=== PATIENT | female | born 1995 | race Caucasian/White ===

== ENCOUNTER 2019-06-08 15:22 | Emergency (ER) | payer BC, OTHER ==
[~2019-06-08] VITALS: Ht 160 cm; Wt 72.8 kg
[~2019-06-08 15:22] MED LIST: DIAZ5TAB PO; DICY20TA33 PO; NAPR-1154 PO
[2019-06-08 15:38] VITALS: BP 107/73
--- NOTE | 2019-06-08 15:57 | NUR ---
PT STATES, STOPPED EFFEXOR AROUND END OF APRIL BEGINNING OF MAY. AND FEELING LIKE HAVING REDRAWAL SYMPTOMS: FREITAS, BRAIN JOLTS, NAUSEA, VOMITING, DIARRHEA, ANXIETY
[2019-06-08] MEDS ORDERED: PROC-8 PO (16:07)
== END 2019-06-08 16:22 | disposition home or self-care (01) ==
LOC: ER 15:22
DX: F32.9 Major depressive disorder, single episode, unspecified (principal); F41.0 Panic disorder [episodic paroxysmal anxiety]; R11.10 Vomiting, unspecified; R19.7 Diarrhea, unspecified; F19.239 Other psychoactive substance dependence with withdrawal, unspecified; F10.99 Alcohol use, unspecified with unspecified alcohol-induced disorder; Z79.899 Other long term (current) drug therapy; Y90.9 Presence of alcohol in blood, level not specified
CPT/HCPCS: 99284

== ENCOUNTER 2025-10-20 17:00 | Emergency (ER) | payer MEDICAID, OTHER ==
[~2025-10-20] VITALS: Ht 160 cm; Wt 97.7 kg
[~2025-10-20 17:00] MED LIST changes: +PROC-8 PO
[2025-10-20 17:31] VITALS: BP 141/94; PULSE 84; RESP 18; O2SAT 98
[2025-10-20] MEDS ORDERED: GABA300C PO (18:27)
--- NOTE | 2025-10-20 18:28 | Physician Documentation ---
HPI ~ General Chief Complaint: Medication Refill Stated Complaint: MED REQUEST Time Seen by MD: 18:23 Primary Medical Doctor: IS[facility] History of Present Illness HPI Comments Patient is a very pleasant 30-year-old female that presents to the emergency department for evaluation for medication refill. Patient reports she is from out of town and is in need of having her gabapentin refilled. Patient reports she takes 300 mg 5 times a day. Patient denies any other symptoms at this time. Medication Reconciliation Allergies: Coded Allergies: No Known Allergies (Unverified , 10/20/25) Scheduled Gabapentin (Neurontin), 1 CAP PO Q8H Naproxen (Naprosyn), 1 TABLET PO BID Prochlorperazine Maleate (Compazine), 1 TAB PO Q8HPRN Scheduled PRN Diazepam (Valium), 1 TABLET PO TID PRN for spasm Dicyclomine HCl (Bentyl), 1 TABLET PO TID PRN for abdominal cramps Past Medical History Past Medical History: Depression Past Surgical History: no surgical history Alcohol Use: Occasionally Lives In: Home Review of Systems ROS As stated above in the HPI, otherwise all systems are reviewed and negative. Physical Exam Physical Exam Vital Signs: Temperature: 97.8, Source: Oral, Heart Rate: 84, Respiratory Rate: 18, BP: 141/94, Pulse Oximetry: 98, Weight: 97.730 Oxygen Flow Rate: 0 Physical Exam VITALS: Reviewed and as above. GENERAL: Alert, no apparent distress. SKIN: Warm and dry, no rash NEURO: Oriented x4, No motor or sensory deficit PSYCH: Normal mood and affect, no agitation Progress Results/Orders Results/Orders Vital Signs 10/20/25 10/20/25 17:31 19:02 Temp 97.8 97.8 Pulse 84 Resp 18 B/P (MAP) 141/94 Pulse Ox 98 O2 Flow Rate 0 Medical Decision Making Additional information obtaine: other Findings Patient is a very pleasant 30-year-old female that presents to the emergency department for evaluation for medication refill. Patient reports she is from out of town and is in need of having her gabapentin refilled. Patient reports she takes 300 mg 5 times a day. Patient denies any other symptoms at this time. Patient is currently pending and will be refilled at 300 mg t.i.d. until she can follow up with her primary care provider. Differential Dx:Considerations: Include: Adverse circumstances, Economic, Psychosocial, Medical services unavail., Medication refill, Medication non- compliance, Other Departure Disposition: 01 HOME / SELF CARE / HOMELESS Impression: Primary Impression: General medical exam Additional Impression: Medication refill Condition: Stable Discharge Instructions: Medical Screening Exam, Medicine Refill at the Emergen cy Department Additional Instructions: Patient is a very pleasant 30-year-old female that presents to the emergency department for evaluation for medication refill. Patient reports she is from out of town and is in need of having her gabapentin refilled. Patient reports she takes 300 mg 5 times a day. Patient denies any other symptoms at this time. Please follow up with the primary care provider. Please return to the emergency department if you have any additional symptoms or concerns that we discussed here today. Referrals: NO PRIMARY CARE PROVIDER (PCP) Prescriptions Gabapentin (Neurontin) 300 Mg Capsule 1 CAP PO Q8H for 30 Days, #90 CAP 0 Refills Prov: CHRISTEN MALIK 10/20/25 Education Educated: Patient Educated regarding: diagnosis, treatment Signature Scribe Signature: A Attestation: Scribed for Christen Malik by MARKY Hendrickson . 10/20/25 18:28 CHRISTEN MALIK Oct 20, 2025 18:28
[2025-10-20 19:02] VITALS: TEMP 97.8
== END 2025-10-20 19:06 | disposition home or self-care (01) ==
LOC: ER 17:00
DX: Z00.00 Encounter for general adult medical examination without abnormal findings (principal); Z76.0 Encounter for issue of repeat prescription; F32.A Depression, unspecified; Z79.899 Other long term (current) drug therapy; Z72.89 Other problems related to lifestyle
CPT/HCPCS: 99282